=== PATIENT | male | born 1950 | race Caucasian/White ===

== ENCOUNTER → 2019-03-11 | Day surgery (SDC) | payer OTHER ==
[~2019-03-11] MED LIST: B COMPLEX WITH1 EACH PO; FENTANYL CITRATE/PF 100MCG/2 ML INJ ONE; MULTIVITAMINS1 EAC7 PO; OR PHACO EYE KIT ONE; PREOP PHACO EYE KIT ONE; PROPOFOL IV EMULSION 10 MG/ML 20 ML VIAL ONE
[2019-03-11 12:40] VITALS: BP 117/66
== END | disposition home or self-care (01) ==
LOC: OR 09:34
PROVIDERS: ATTEND Ophthalmology
DX: H25.12 Age-related nuclear cataract, left eye (principal); Z88.1 Allergy status to other antibiotic agents; Z88.2 Allergy status to sulfonamides
CPT/HCPCS: 66984; J2704; J3010; V2632

== ENCOUNTER → 2019-07-15 | Day surgery (SDC) | payer OTHER ==
[~2019-07-15] MED LIST changes: -FENTANYL CITRATE/PF 100MCG/2 ML INJ ONE; -PROPOFOL IV EMULSION 10 MG/ML 20 ML VIAL ONE
[2019-07-15 13:01] VITALS: BP 151/81
== END | disposition home or self-care (01) ==
LOC: OR 09:24
PROVIDERS: ATTEND Ophthalmology
DX: H25.11 Age-related nuclear cataract, right eye (principal); Z88.3 Allergy status to other anti-infective agents; Z88.2 Allergy status to sulfonamides
CPT/HCPCS: 66984; V2632